=== PATIENT | female | born 1945 | race African-American/Black ===

== ENCOUNTER → 2020-12-13 06:47 | Outpatient (REF) | payer MEDICARE, OTHER, SELFPAY ==
--- NOTE | 2020-12-13 06:45 | CA_ITS ---
Transthoracic Echocardiogram Patient (Last, First, Middle): Jayna Vivas, Gender: Female Date of : 1945 Age: 75 Procedure Date: 12/13/2020 Procedure Type: Transthoracic Echocardiogram Location: OP Height: 157.48 cm Weight: 70.31 kg BSA: 1.72 m2 Heart Rate: bpm BP: 116 / 60 mmHg Spectrographic Analyst: Referring MD: Jose Castro MD Symptoms: STROKE Study Quality: Good ECG Rhythm: Sinus Conclusions: - The left ventricular systolic function is normal. The visually estimated ejection fraction is between 55-60%. - There is moderately increased left ventricular wall thickness. - The basal inferior and mid inferior segments are hypokinetic. - E/E prime ratio is >15, consistent with elevated filling pressures. Evidence suggests grade I (mild) diastolic dysfunction. - The left atrium is moderately dilated. - There is mild calcification of the aortic valve. - Facq-hp-kmsskdbo mitral annular calcification. Findings Left Ventricle Normal left ventricular cavity size. There is moderately increased left ventricular wall thickness. The left ventricular systolic function is normal. The visually estimated ejection fraction is between 55-60%. There is no evidence of regional wall motion abnormalities. E/E prime ratio is >15, consistent with elevated filling pressures. Evidence suggests grade I (mild) diastolic dysfunction. Wall Motion Rest Echo Findings The basal inferior and mid inferior segments are hypokinetic. Right Ventricle Normal right ventricular cavity size and systolic function. Atria The left atrium is moderately dilated. The right atrium is normal in size. Aortic Valve There is a normal trileaflet aortic valve. There is mild calcification of the aortic valve. There is no aortic valve stenosis. There is no aortic valve regurgitation. Mitral Valve There is trace mitral valve regurgitation. There is no mitral valve stenosis. Tnum-bc-gwwfuevu mitral annular calcification. Pulmonic Valve The pulmonic valve was not well visualized. There is mild pulmonic valve regurgitation. Tricuspid Valve Normal tricuspid valve structure. There is trace tricuspid valve regurgitation. The pulmonary artery systolic pressure is normal. Great Vessels The asc aorta is normal in size. Venous The inferior vena cava is normal in size and collapses greater than 50% with inspiration. Pericardium/Pleural There is no evidence of pericardial effusion. Prior Study Comparison No prior study available for comparison. Measurements 2D Linear Measurements IVSd: 1.25 0.6-0.9/0.6-1.0 cm LVIDd: 4.53 3.9-5.3/4.2-5.9 cm LVIDd Index: 2.63 2.4-3.2/2.2-3.1 cm/m2 LVIDs: 2.85 2.0-3.6 cm LVPWd: 1.31 0.7-1.1 cm Ao Root: 3.20 2.1-3.5 cm LA Diam: 3.80 2.7-3.8/3.0-4.0 cm LAIDs Index: 2.21 1.5-2.3 cm/m2 LV Mass: 273.98 67-162/88-224 g LV Mass Index: 159.29 43-95/49-115 g/m2 LVOT Diam: 2.00 3.0+(-)1.3 cm Mitral Valve MV Pk E: 1.16 MV PK A: 1.47 MV Decel Time: 241.00 E/A: 0.80 E'Lateral: 4.24 E'Medial: 3.59 E/E' Med: 32.30 E/E' Lat: 27.40 PHT: 71.00 MVA PHT: 3.10 Decel Worth: 4.81 Aortic Valve AoV Pk Zaid: 1.94 AoV Mn Zaid: 1.18 AoV VTI: 0.46 AoV Pk Grad: 15.00 Aov Mn Grad: 7.00 LUPE Cont.VTI: 2.39 LVOT LVOT Pk Zaid: 1.32 LVOT Mn Zaid: 0.81 LVOT VTI: 0.35 LVOT Pk Grad: 7.00 LVOT Mn Grad: 3.00 LVOT Diam: 2.00 LVOT Area: 3.14 Diastolic Function MV Pk E: 1.16 MV Pk A: 1.47 E/A: 0.80 E'Medial: 3.59 E/E' Med: 32.30 E' Laterial: 4.24 E/E' Lat: 27.40 Right Ventricle TAPSE (mm): 2.54 TVS' Zaid: 14.10 Tricuspid Valve TR Pk Zaid: 1.82 TR Pk Grad: 13.00 Great Vessels Aorta Ao Root-2D: 3.20 2.0-3.7 cm Ao Asc: 3.60 2.1-3.4 cm Pulmonary Valve PV Pk Zaid: 1.18 Peak PV Grad: 6.00 Updated in Other Vendor System with Status of Final William Cisse MD electronically signed on 12/15/2020 1:20:27 PM with status of Final
== END ==
LOC: HO.CARD 06:47
PROVIDERS: PCP Internal Medicine Endocrinology, Diabetes & Metabolism; Visit Provider Psychiatry & Neurology Neurology
DX: I63.9 Cerebral infarction, unspecified (principal)
CPT/HCPCS: 93306

== ENCOUNTER 2022-06-22 00:48 | Emergency (ER) | payer MEDICARE, OTHER, SELFPAY ==
--- NOTE | ~2022-06-22 | XR_ITS ---
EXAMINATION: XR CHEST CLINICAL INFORMATION: Covid positive COMPARISON: None TECHNIQUE: Frontal view of the chest was obtained. FINDINGS: Left IJ catheter tip lies in the region of the cavoatrial junction. The lungs are hypoinflated. No focal consolidation is seen. No evidence of pneumothorax, pleural effusion, or pulmonary edema. Cardiac silhouette appears enlarged though may be accentuated by low lung volumes. Calcification is present at the aortic arch. Degenerative changes are noted in the spine. XR/XR chest 1V IMPRESSION: Low lung volumes without focal consolidation.
[2022-06-22 00:57] VITALS: BP 131/70; PULSE 75; O2SAT 97
[2022-06-22 01:00] VITALS: BP 158/66; PULSE 86; RESP 20; TEMP 37.2; O2SAT 98; BMI 20.9
--- NOTE | 2022-06-22 01:04 | ED.GENADULT ---
HPI - General Adult General Chief complaint: Altered Mental Status Stated complaint: covid + fever Time Seen by Provider: 06/22/22 01:02 Source: EMS and RN notes reviewed Mode of arrival: EMS History of Present Illness HPI narrative: Patient is 76 years old with history of CHF, E end-stage renal disease on dialysis, type 2 diabetes, CVA, COPD came from [facility] as nurses noticed that patient was having audible wheezing and congestion an COVID test was done which was positive had a temperature of a 102 degree no medication was given for fever patient with limited history Related Data Allergies Allergy/AdvReac Type Severity Reaction Status Date / Time lisinopril Allergy Unknown Unknown Verified 06/22/22 01:11 codeine Allergy Unknown Verified 06/22/22 01:11 Review of Systems Review of Systems: Yes all other systems are reviewed and are negative Physical Exam ED Vital Signs: Vital Signs - 24 hr 06/22/22 01:00 Temperature 98.9 F Pulse Rate 86 Respiratory Rate 20 Blood Pressure 158/66 H Pulse Oximetry 98 Oxygen Delivery Method Room Air BMI result Body Mass Index 20.9 Appearance: Alert. Oriented X1. No acute distress. Frail thin built Eyes: No pallor or icterus ENT: Pharynx normal. Oral Mucosa moist Neck: Normal inspection. Neck supple. CVS: Normal heart rate and rhythm. Pulses normal. Respiratory: No respiratory distress. Equal air entry bilateral, occasional crackles bilateral Shiley catheter on left side Abdomen: Soft and nontender. Bowel sounds are present, no mass palpable, no CVA tenderness Skin: Skin warm and dry. Normal skin color. Normal skin turgor. Extremities: No lower extremity edema. No calf tenderness Neuro: Oriented X 1. Limited lower extremity movements Medications Administered Discontinued Medications Generic Name Dose Route Start Last Admin Trade Name Freq PRN Reason Stop Dose Admin Acetaminophen 650 mg 06/22/22 01:11 06/22/22 01:54 Acetaminophen 325 Mg Tablet PO 06/22/22 01:12 650 mg ONCE ONE Administration Medical Decision Making Medical Decision Making [facility] Narrative: Patient 76 years old with multiple comorbid condition on dialysis sent from shelter for fever and increased confusion COVID test positive. Will do basic lab workup blood culture lactic acid to rule out any other infection process patient is saturating 97% on room air clinically stable Patient's chest x-ray negative for infiltrate Sign-out to Dr. Garcia pending labs and disposition Differential Diagnosis COVID-19/pneumonia/sepsis/congestive heart failure Discharge Plan Discharge Clinical Impression: COVID-19 Patient Disposition: Still a Patient
--- NOTE | 2022-06-22 01:11 | ECG_ITS ---
Test Reason : weakness Blood Pressure : / mmHG Vent. Rate : 082 BPM Atrial Rate : 082 BPM P-R Int : 166 ms QRS Dur : 118 ms QT Int : 360 ms P-R-T Axes : 047 -22 082 degrees QTc Int : 420 ms Normal sinus rhythm Left ventricular hypertrophy with QRS widening ( R in aVL , [place] product ) Inferior infarct , age undetermined Abnormal ECG No previous ECGs available Referred By: Alberto Burnett Electronically Signed By:WILLIAM SCHAEFFER MD
[2022-06-22] MEDS: Acetaminophen 325 MG TABLET 650 MG PO (01:54)
[2022-06-22 02:16] LABS: MANUAL DIFF FLAG NO
[2022-06-22 02:20] LABS: Basophils Percent Auto 0.7 % (0-2); Eosinophils Percent Auto 0.2 % (0-4); Hematocrit 32.5 % (37.0-47.0); Hemoglobin 10.4 g/dl (12.0-16.0); Imm Gran Abs Auto 0.02 X10*3/uL (0.00-0.03); Imm Gran Pct Auto 0.3 % (0.0-0.4); Lymphocytes Absolute Auto 0.5 X10*3/uL (1.2-4.9); Lymphocytes Percent Auto 8.3 % (20-40); Mean Corpuscular Hemoglobin 26.7 pg (27.0-33.0); Mean Corpuscular Volume 83.3 fL (80.0-98.0); Mean Platelet Volume 11.1 fL (9.4-12.3); Monocytes Absolute Auto 0.2 X10*3/uL (0.1-1.2); Monocytes Percent Auto 3.5 % (2-11); Platelet Count 222 X10*3/uL (160-400); Red Cell Distribution Width 16.7 % (11.0-16.0); White Blood Count 5.8 X10*3/uL (4.8-10.8)
[2022-06-22 02:32] LABS: Lactic Acid 0.9 mmol/L (0.5-2.0)
[2022-06-22 02:39] VITALS: BP 152/62; PULSE 82; RESP 24; TEMP 37.9; O2SAT 100
[2022-06-22 02:41] LABS: Alanine Aminotransferase 7 U/L (0-31); Albumin Level 3.7 g/dL (3.5-5.0); Alkaline Phosphatase 85 U/L (39-117); Anion Gap 19 (12-20); Aspartate Amino Transferase 15 U/L (5-31); Bilirubin Total 0.8 mg/dL (0.0-1.0); Blood Urea Nitrogen 40 mg/dL (9-16); Carbon Dioxide 22 mmol/L (22-29); Chloride 101 mmol/L (96-108); Creatinine Clr Calc Pharmacy 10.8; Estimated Glomerular Filt Rate 13; Glucose Random 124 mg/dL (60-115); Potassium 4.3 mmol/L (3.3-5.1); Sodium 138 mmol/L (135-145); Total Protein 6.9 g/dL (6.5-8.0)
[2022-06-22 02:56] LABS: Influenza A PCR NEGATIVE (Negative); Influenza B PCR NEGATIVE (Negative); Resp Syncy Virus RNA Qual PCR NEGATIVE (Negative); SARS COV2 PCR INHOUSE POSITIVE (Negative)
[2022-06-22 05:39] VITALS: BP 160/54; PULSE 62; RESP 14; O2SAT 95
--- NOTE | 2022-06-22 06:10 | MHC.EDTECH ---
call out to [facility] for BLS transport back to [facility]. Patient has Rhomania Barrow for insurance
== END 2022-06-22 08:07 | disposition skilled nursing facility (03) ==
PROVIDERS: Emergency Provider Internal Medicine
DX: U07.1 COVID-19 (principal); R50.9 Fever, unspecified; E11.22 Type 2 diabetes mellitus with diabetic chronic kidney disease; N18.6 End stage renal disease; Z99.2 Dependence on renal dialysis
CPT/HCPCS: 0241U; 71045; 80053; 83605; 85025; 87040; 93005; 99283; 99284

== ENCOUNTER 2022-07-19 15:30 | Emergency (ER) | payer MEDICARE, OTHER, SELFPAY ==
--- NOTE | ~2022-07-19 | CT_ITS ---
EXAMINATION: CT HEAD WITHOUT CONTRAST CLINICAL INFORMATION: Right frontal hematoma status post fall. Rule out intracranial abnormality. COMPARISON: None TECHNIQUE: Contiguous axial imaging was performed from the skull base to vertex without intravenous administration of contrast. Coronal and sagittal reformatted images were obtained. This CT examination was performed using dose optimization techniques as appropriate, variously including the following: *Automated exposure control *Adjustment of mA and/or kV according to patient size (this includes techniques or standardized protocols for targeted exams where dose is matched to indication/reason for exam; i.e. extremities or head) *Use of iterative reconstruction technique DLP: 964 mGy-cm FINDINGS: There is mild to moderate widening of the cortical sulci and associated ventriculomegaly. The lateral ventricles are symmetrical. The third and fourth ventricles are in their normal midline position. The basilar and prepontine cisterns are unremarkable. Mild periventricular microvascular changes are seen. Lobe. Small lacunar type infarct posteriorly in the left occipital lobe as well as in the right and left vanessa. There is no acute intra or extracerebral abnormality. There is no mass effect or midline shift. There is a small right frontal subgaleal hematoma. Sections through the bony calvarium are unremarkable. The orbits are intact. The paranasal sinuses show mild posterior opacification in the right frontal and left ethmoid sinuses. The mastoid air cells are clear. CT/CT head/brain wo IV con IMPRESSION: 1. No acute intracranial pathology. Chronic appearing changes detailed above. 2. Small right frontal subgaleal hematoma without acute underlying abnormality.
--- NOTE | ~2022-07-19 | CT_ITS ---
EXAMINATION: CT CERVICAL SPINE WITHOUT CONTRAST CLINICAL INFORMATION: Neck pain status post fall, rule out fracture. COMPARISON: None TECHNIQUE: Multiple axial images of the cervical spine were obtained without the administration of intravenous contrast. Coronal and sagittal reformatted images were obtained. This CT examination was performed using dose optimization techniques as appropriate, variously including the following: *Automated exposure control *Adjustment of mA and/or kV according to patient size (this includes techniques or standardized protocols for targeted exams where dose is matched to indication/reason for exam; i.e. extremities or head) *Use of iterative reconstruction technique DLP: 249.40 mGy-cm FINDINGS: Mild to severe multilevel degenerative changes are seen in the cervical spine most pronounced at C5-C6 where there is mild grade 1 retrolisthesis. Mild grade 1 anterolisthesis is seen at C7-T1. The vertebral bodies and intervertebral disc spaces are unremarkable. Mild bilateral neural foraminal narrowing is seen at C5-C6 and C6-C7. Mild to moderate multilevel bilateral facet arthropathy, most pronounced on the left at C2-C3 and C7-T1. The spinous and transverse processes are intact. The cervical soft tissues are unremarkable. Moderate atherosclerosis is seen in the carotid bulbs bilaterally, left greater than right. The visualized thyroid gland is enlarged and nodular with multiple large nodules, some of which demonstrate coarse calcifications. This extends inferiorly into the right superior mediastinum with mild mass effect on the right trachea. The esophagus is unremarkable. Limited views of the lungs show a groundglass nodule posteriorly in the right apex measuring 0.4 cm (image 256, series 12). CT/CT cervical spine wo IV con IMPRESSION: 1. Multilevel degenerative changes as detailed above without definitive acute abnormality. 2. Enlarged multinodular goiter. 3. 0.4 cm right apical groundglass nodule is nonspecific. Following Fleischner Society guidelines, no imaging follow-up is recommended at this time.
[2022-07-19 15:37] VITALS: BP 144/56; PULSE 80; O2SAT 100
[2022-07-19 15:39] VITALS: BP 157/64; PULSE 76; RESP 6; TEMP 36.6; O2SAT 98; BMI 19.5
[2022-07-19 15:43] LABS: Glucose, Whole Blood 204 mg/dL (60-115)
--- NOTE | 2022-07-19 15:43 | ECG_ITS ---
Test Reason : FALL Blood Pressure : / mmHG Vent. Rate : 073 BPM Atrial Rate : 073 BPM P-R Int : 162 ms QRS Dur : 116 ms QT Int : 380 ms P-R-T Axes : 035 -28 095 degrees QTc Int : 418 ms Artifact in tracing Normal sinus rhythm Minimal voltage criteria for LVH, may be normal variant ( [place] product ) Inferior infarct (cited on or before 22-JUN-2022) Abnormal ECG When compared with ECG of 22-JUN-2022 02:17, No significant changes seen Referred By: Generic ED Physician Electronically Signed By:YULI JIN
--- NOTE | 2022-07-19 16:09 | ED_ITS ---
HPI - Fall General Chief Complaint: Fall Stated Complaint: fall Time Seen by Provider: 07/19/22 16:00 Source: patient and family (, Robert) Mode of arrival: EMS Limitations: other (Memory deficits) History of Present Illness HPI Narrative: 76-year-old female who presents emergency department for evaluation of unwitnessed fall from wheelchair. The patient has no memory of the fall and defers questions to her , Robert who is here in the emergency department with the patient. Information was also obtained from ED nursing, the patient had a unwitnessed fall from wheelchair. Patient was noted to have a hematoma to her right forehead. The patient currently has no complaints, she denies headache, nausea, vomiting, neck pain, chest pain, back pain, abdominal pain, numbness or weakness. The patient's states that the patient was recently hospitalized at [facility] for renal failure dialysis and inability to walk. After hospitalization she was sent to [facility] where she is getting rehab care. The states the patient has not been sick in any way over the past several days and he does visit her daily. Related Data Allergies Allergy/AdvReac Type Severity Reaction Status Date / Time lisinopril Allergy Unknown Unknown Verified 07/19/22 15:42 codeine Allergy Unknown Verified 07/19/22 15:42 Review of Systems Review of Systems: Yes all other systems are reviewed and are negative [facility] Past Medical History [facility] Narrative: Past medical history: Congestive heart failure, end-stage renal disease on dialysis, diabetes mellitus, CVA, COPD, COVID positive 06/22/2022. Social history: She is , is here in the emergency department. She was living at home but now she is currently at [facility] for rehab x1 month after a acute hospitalization at [facility] Social History Social History Smoked in Last 30 Days: No Use of substances other than those prescribed or required for medical reasons: No Advance Directives: Yes Advance Directives on File: Yes Advance Directives Date on File: 06/24/22 Physical Exam Vital Signs: Vital Signs: Last Vital Signs Temp 97.8 F 07/19/22 15:39 Pulse 71 07/19/22 16:53 Resp 14 07/19/22 16:53 BP 173/68 H 07/19/22 16:53 Pulse Ox 96 07/19/22 16:53 O2 Del Method 07/19/22 16:53 BMI result Body Mass Index 19.5 Const: Other: Awake, alert, female patient, very pleasant cooperative, does not appear to be in distress, is oriented to person, defers answers to all questions to her who is at the bedside Orientation/consciousness: oriented to person HEENT: Other: Patient has a 2 x 2 cm hematoma to the right forehead, this area is tender to palpation Ears: external ears normal General nose exam: Normal external nose present Face and sinus: Yes normal facial exam Mouth: Normal oral and palatal mucosa present Throat: Yes posterior oropharynx normal Eyes: General: appearance normal, both eyes and all related structures Pupils: Equal, round and reactive pupils present Neck: Neck: Yes normal visual inspection, Yes no lymphadenopathy, Yes trachea midline and Yes supple Chest: Chest palpation & inspection: normal inspection of the chest and normal palpation of entire chest wall Resp: Effort & Inspection: normal respiratory effort and able to speak in complete sentences Auscultation: clear to auscultation bilaterally Cardio: Rate: regular rate Rhythm: regular rhythm Heart sounds: S1 normal heart sound present, S2 normal heart sound present and no murmurs GI: Inspection: Yes normal to inspection Palpation (GI): Soft to palpation, nontender and no guarding Auscultation: normal bowel sounds : General: Yes no CVA tenderness Back/Spine/Pelvis: Back: no CVA tenderness Skin: General skin exam: no rashes or lesions noted Neuro: General: oriented to person Cranial nerves: Yes CN's II-XII intact bilaterally and Yes Equal, round and reactive pupils present Cognition (Neuro): normal cognition Motor exam (neuro): Other motor observations present (Moves all extremities symmetrically) Extrem: General: Yes normal to inspection Psych: Appearance: grossly normal Speech and movement: Normal speech and movement present Affect: normal affect Attitude: cooperative Medical Decision Making Medical Decision Making MDM Narrative: 76-year-old female who presents emergency department for evaluation of unwitnessed fall from her wheelchair at her long term facility. Patient does not recall details of the injury. The patient's is here in the emergency department reports the patient was not ill in any way prior to the fall. Patient's physical examination did reveal a hematoma to her right forehead otherwise exam was unremarkable. Plan: CT head and cervical spine without IV contrast for rule out fracture, intracranial bleed. 1726: The patient's CT scan of the head and cervical spine were negative. On re-evaluation the patient is awake and alert and has had no change in mental status, she has had no nausea vomiting since being here. I did discuss the findings with the patient and the patient's the patient will be discharged back to her care facility. Differential Diagnosis Differential diagnosis includes was not limited to subcutaneous hematoma right forehead, skull fracture, cervical fracture, intracranial bleed Lab Data MDM Lab Attestation statement: I reviewed the patient's lab results. Labs: Lab Results 07/19/22 Range/Units 15:38 POC Glucose 204 H (60-115) mg/dL Radiology Impression Discussion of test interpretation with radiology: I have reviewed the radiologist's reading. Radiologist Impression: CT head/brain wo IV con IMPRESSION: 1. No acute intracranial pathology. Chronic appearing changes detailed above. 2. Small right frontal subgaleal hematoma without acute underlying abnormality. Dictated By:Jaleel Vasquez MDSigned By:<Electronically signed by Jaleel Vasquez MD in OV>07/19/[address] cervical spine wo IV con IMPRESSION: 1. Multilevel degenerative changes as detailed above without definitive acute abnormality. 2. Enlarged multinodular goiter. 3. 0.4 cm right apical groundglass nodule is nonspecific. Following Fleischner Society guidelines, no imaging follow-up is recommended at this time. Dictated By:Jaleel Vasquez MDSigned By:<Electronically signed by Jaleel Vasquez MD in OV>07/19/22 1702 Discharge Plan Discharge Clinical Impression: Fall Qualifiers: Encounter type: initial encounter Qualified Code(s): W19.XXXA - Unspecified fall, initial encounter Traumatic hematoma of forehead Qualifiers: Encounter type: initial encounter Qualified Code(s): S00.83XA - Contusion of other part of head, initial encounter Closed head injury Qualifiers: Encounter type: initial encounter Qualified Code(s): S09.90XA - Unspecified injury of head, initial encounter Patient Disposition: er [facility] Transfer Details: [facility] Instructions: Head Injury (ED) Additional Instructions: The CT scan of your head and cervical spine without IV contrast revealed no broken bones of your skull and no bleeding in the brain, no broken bones of your neck. This is very reassuring. Apply ice for 10-15 minutes to your forehead bump (hematoma). Sometimes after you have a hematoma to your forehead, your face, areas around her eyes and neck will turn black and blue, this is part of the healing process. Follow-up with your doctor in 2 days. Please return to the emergency department if your symptoms get worse or if you develop any symptoms that are concerning to you.
[2022-07-19 16:53] VITALS: BP 173/68; PULSE 71; RESP 14; O2SAT 96
== END 2022-07-19 18:52 | disposition skilled nursing facility (03) ==
PROVIDERS: Emergency Provider Emergency Medicine Emergency Medical Services; PCP Family Medicine
DX: S00.83XA Contusion of other part of head, initial encounter (principal); R51.9 Headache, unspecified; M54.2 Cervicalgia; W05.0XXA Fall from non-moving wheelchair, initial encounter; Y93.9 Activity, unspecified; Y92.9 Unspecified place or not applicable; Y99.9 Unspecified external cause status; Z79.899 Other long term (current) drug therapy
CPT/HCPCS: 70450; 72125; 82947; 93005; 99284; 99285